=== PATIENT | female | born 1980 | race Caucasian/White ===

== ENCOUNTER 2022-10-26 09:55 | Inpatient (IN) | payer OTHER, SELFPAY ==
[2022-10-26] VITALS (19 sets, daily range): BP systolic 117–157; BP diastolic 59–82; PULSE 62–90; RESP 16–20; TEMP 36.1–37.3; O2SAT 95–100; BMI 36.2
[2022-10-26 10:56] LABS: Ur HCG Qualitative* Negative (Negative)
[2022-10-26] MEDS: LACTATED RINGERS 1000 ML 1,000 ML 100 ML IV ×2 (11:00→12:28)
[2022-10-26] MEDS: SODIUM CHLORIDE 0.9 % (FLUSH) 10 ML SYRINGE IVF (11:00)
[2022-10-26 11:04] LABS: Hemoglobin* 12.5 gm/dL (12.0-16.0)
[2022-10-26] MEDS: CEFAZOLIN 1 GM inj 3 GM IVP (12:10)
[2022-10-26] MEDS: VASOPRESSIN 20 UNIT/ML INJ INJECTION (12:47)
--- NOTE | 2022-10-26 14:24 | W.ANESCHARGE ---
Anesthesia Charges Start Date/Time Anesthesia Start Date: 10/26/22 Anesthesia Start Time: 11:58 Stop Date/Time Anesthesia Stop Date: 10/26/22 Anesthesia Stop Time: 15:04 Summary Emergency: No
--- NOTE | 2022-10-26 14:33 | W.PM.GYNPROC ---
Procedure Note Date Seen: 10/26/22 Procedure Details: PREOPERATIVE DIAGNOSIS: 1. Menorrhagia 2. Large fibroid uterus POSTOPERATIVE DIAGNOSIS: 1. Menorrhagia 2. Large fibroid uterus PROCEDURE: Laparotomy with myomectomies, total abdominal hysterectomy and bilateral salpingectomies. SURGEON: Marlys. OCCASIONAL CAREGIVER: Monika. ANESTHESIA: General endotracheal COMPLICATIONS: None ESTIMATED BLOOD LOSS: See operative report by Dr. Frankel. FINDINGS: Enlarged irregular myomatous uterus, weight greater than 800 grams, normal ovaries and fallopian tubes bilaterally. PROCEDURE NOTE: Please see the operative report by Dr. Frankel for full details of the procedure. I was asked to assist. I was scrubbed in for the entire procedure until closure of the abdominal incisions. I provided assistance with the laparotomy, visualization and retraction, and with the myomectomies, hysterectomy and bilateral salpingectomies from the right side, as well as with hemostasis and closure of the vaginal cuff.
--- NOTE | 2022-10-26 14:37 | W.PM.NB ---
Nerve Block Nerve Block Time Seen by Provider: 12:10 Date Seen: 10/26/22 Type of block requested by surgeon for post-operative analgesia: TAP Side: bilateral Time out performed: Yes Verification of patient name: Yes Verification of date of : Yes Site marking: site marked Name of person performing procedure: Jacob Continuous monitoring Was continuous monitoring of O2 sat, B/P, security monitor, recorded every 15 minutes?: Yes Procedure Checklist: sterile prep, needles and gloves Ultrasound guided. Images saved: Yes Medications given in 5ml increments after negative aspiration: Marcaine %: 0.25 mL: 30 Needle gauge: 20 and Exparel mL: 10 Patient tolerated procedure well: Yes Additional comments: Needle noted adjacent to nerve Block Charges Block Charge (with Pro Fee): TAP Bilateral Use of Ultrasound Machine for Block: Yes- US Guidance/pain block
--- NOTE | 2022-10-26 14:37 | W.ANESCHARGE ---
Anesthesia Charges Start Date/Time Anesthesia Start Date: 10/26/22 Anesthesia Start Time: 11:58 Stop Date/Time Anesthesia Stop Date: 10/26/22 Anesthesia Stop Time: 15:04 Summary Emergency: No
--- NOTE | 2022-10-26 14:59 | P.PCN_ITS ---
Procedure Note Time Seen by Provider: 15:00 Date Seen: 10/26/22 Date of procedure: 10/26/22 Will [facility] bill your pro fee for this procedure?: Yes Procedure: REFERRING PHSICIAN/PROVIDER: AARON Kilgore. PREOPERATIVE DIAGNOSIS: 42-year-old nulligravid woman with uterine fibroids and menorrhagia. POSTOPERATIVE DIAGNOSIS: Same. NAME OF PROCEDURE: Laparotomy, abdominal myomectomy x2, Total abdominal hysterectomy. Bilateral salpingectomies. SURGEON: Kaye Frankel MD VOCATIONAL REHABILITATION SPECIALIST: Karina Frank MD. SECOND ASSIST: NIKKI Charles. ANESTHESIA: General endotracheal. TAPS block. COMPLICATIONS: Myomectomy x2 prior to performing the hysterectomy to promote visualization: this took >60minutes of time above the time typically required for an abdominal hysterectomy. ESTIMATED BLOOD LOSS: 600 ml URINE OUTPUT: 400 mL clear urine at the end of the procedure IV FLUID: 1700 mL DRAINS: Juarez to gravity. SPECIMEN: 1. Uterus (with fibroids) and cervix. 2. Right fallopian tube. 3. Left fallopian tube. All sent to pathology. FINDINGS: Exam under anesthesia the uterus was palpable 2-3 cm below the umbilicus. The uterus was globular and immobile. Adnexa could not be evaluated on bimanual exam. On laparotomy: The pelvic anatomy was extremely distorted due to 1 or 2 large intramural, degenerated fibroids and 1 left- posterior fibroid that nearly filled the posterior cul-de-sac. The uterus plus fibroids was approximately 20 week size. The fallopian tubes and ovaries were normal. Both ureters were noted at the end of the procedure to be coursing in the sidewalls the pelvis well below the hysterectomy pedicles. PROCEDURE: After obtaining informed consent, the patient was taken to the operating room where general anesthesia was found to be adequate. A TAPS block was placed. She was prepared and draped in the normal sterile fashion in the dorsal supine position. A Juarez catheter was inserted sterilely into the bladder. A Pfannenstiel skin incision was made with a scalpel. This incision was carried down to the underlying layer of fascia with the Bovie. The fascia was incised in the midline and the incision extended laterally with Reis scissors.. The superior and inferior aspects of the fascial incision were grasped with Diane clamps and the underlying rectus muscles dissected off sharply. The rectus muscles were in the midline. The underlying peritoneum was identified, grasped with Angeles clamps and entered sharply with Metzenbaum scissors.. The peritoneal incision was extended superiorly and inferiorly with good visualization of the bladder. The patient was placed in some mild Trendelenburg positioning. Due to distortion of the normal pelvic anatomy it was difficult to identify any normal anatomy other than the round ligaments which were doubly clamped with Diane clamps divided with bipolar cautery and suture-ligated. Portion of the anterior broad ligament was then divided with bipolar cautery bilaterally. A bladder flap was created and the bladder mobilized away from the anterior aspect of the uterus. The bowels were packed cephalad using a large moistened laparotomy sponge. The Les O retractor was placed in the incision. The Les retractor had to be replaced because of the distorted uterine anatomy the 1st attempt I placed was noted to be incorrect. The pelvis was inspected with the findings noted above. Due to the extremely large size of the uterus and lobular nature of the fibroids a myomectomy x2 was performed prior to attempting the hysterectomy. Ten mL of dilute vasopressin: 200 units in 50 mL of saline was injected in the surface of the uterus at the fundus. Uterus was then incised with bipolar cautery with an incision approximately 8 cm in length. The capsule of the fibroid/fibroids was difficult to identify secondary to the fibroids being very soft due to suspected degeneration. The uterine serosa was difficult to identify because it was very thin. Areas where the uterine serosa was identified were clamped with Omayra clamps and divided with bipolar cautery to minimize bleeding. During the dissection of the degenerated fibroids, the fallopian tubes and ovaries were visualized and Falls clamps were placed at the cornual aspect of the uterus bilaterally. The degenerated fibroids were grasped with perforating towel clamps and the plane between the uterine serosa and fibroid capsule was form digitally. Once the serosa was mobilized away from the capsule of the fibroids to perform a partial myomectomy. The superior aspect of the fibroids was removed with bipolar cautery. At this point, the ovaries and fallopian tubes were visualized enough to be able to perform a bilateral salpingectomy. The right fallopian tube was identified, grasped with a Jerod clamp and removed using the LigaSure dissecting forceps. Pedicles were formed starting at the fimbriated end of the fallopian tube and the fallopian tube removed from the uterus at the cornual end. The left fallopian tube was identified and removed in a similar manner. Excellent hemostasis along the mesio-salpinx was verified using bipolar cautery. Attention was then turned to performing a 2nd myomectomy as the posterior, lower uterine segment fibroid that was in the cul-de-sac of the uterus was preventing visualization of the uterus to perform the hysterectomy. The uterine serosa ove rlying the fibroid was injected with the dilute vasopressin. 10 mL used. The overlying serosa was then incised with bipolar cautery down to the level of the fibroid capsule. The fibroid was grasped with a perforating towel clamp and the plane between uterine serosa and capsule was formed digitally. The fibroid was then removed from the underlying uterine serosa with blood pressure. The incisi on in the uterine serosa was then reapproximated using 0-Vicryl in a running locked manner. Attention was turned to performing the hysterectomy. The right, posterior leaf of the broad ligament was divided with bipolar cautery The posterior leaf of the broad ligament was incised inferior to the right utero-ovarian ligament and doubly clamped with a Omayra clamp and the right cornual Royce clamp. The ligament was divided with Reis scissors and the utero-ovarian pedicle doubly suture ligated with a free tie of 0 Vicryl suture and than a [id number]-yeh-[id number] stitch of 0-vicryl. The left utero-ovarian ligament was doubly clamped, divided and suture-ligated in a similar manner. Attention was then turned to the right side. The anterior leaf the broad ligament/peritoneum was carefully skeletonized using bipolar cautery and a DeBakey clamp. There was a moderately large blood vessel with in the anterior leaf the broad ligament that was identified, doubly clamped with 2 right angle clamps, divided with Reis scissors and suture ligated with 0-Vicryl free tie. The remaining peritoneum was then skeletonized off of the uterine blood vessels. The right uterine blood vessels were doubly Omayra clamped, divided with Reis scissors and Omayra transfixed. One additional pedicle using a straight Omayra clamp was formed on the right. The left uterine vessels were skeletonized and then clamped across with Omayra clamps, transected, and suture ligated. Excellent hemostasis was obtained. At this point the enlarged uterus was removed from the cervix using bipolar cautery. The cervix was then grasped with 2 Diane clamps. At this point the ureters were visualized coursing in the lateral banda of the pelvis bilaterally well below the suture/pedicle line. The remaining cardinal and uterosacral ligament attachments on both sides were clamped with straight Omayra clamps adjacent to the lower uterine segment and cervix, transected and suture ligated with 0 Vicryl. Excellent hemostasis was obtained. Two Omayra clamps were placed across the vaginal cuff angles. The uterus with attached cervix was then transected and passed off the field. The vaginal cuff angles were fixed with Omayra stitches of 0 Vicryl. The intervening vaginal cuff was closed with [id number] sutures of 0 Vicryl. The abdomen and pelvis were then copiously irrigated. Two pedicles appear to have some bleeding. One within the left vaginal cuff apex that was crossclamped with a right angle clamp and suture ligated with 0-Vicryl suture. The other pedicle was a hysterectomy pedicle on the right that was also crossclamped with a right angle clamp and suture ligated with 0 Vicryl suture. Remaining small bleeding vessels were isolated with DeBakey clamps and cauterized for hemostasis. Ralph was applied to the vaginal cuff, bladder flap serosa and hysterectomy pedicles. All laparotomy sponges and instruments were then removed. The subfascial tissues were carefully inspected and hemostasis assured. The fascia was re- approximated in a running fashion with a looped 0 Maxon suture. The subcutaneous tissues were irrigated and hemostasis obtained with bipolar cautery. The subcutaneous adipose layer was re-approximated with 3-0 plain gut interrupted sutures The skin was closed in a subcuticular fashion with 4-0 Monocryl. A silver dressing was applied. The patient tolerated the procedure well. Sponge, lap, needle, instrument counts were reported as correct x2. The patient was taken to recovery room awake and in stable condition. She received 3 g of IV Ancef preoperatively. Time spent operating 2 hours 45 minutes for the hysterectomy. Uterine weight in the operating room: 874 g Surgeon: Kaye Frankel MD
[2022-10-26] MEDS: HYDROmorphone 0.5 mg/0.5 ml inj IVP (16:03)
[2022-10-26] MEDS: OXYCODONE 5 MG TABLET PO ×2 (17:12→17:43)
[2022-10-26] MEDS: SIMETHICONE 80 MG TAB.CHEW 160 MG PO (18:04)
[2022-10-26] MEDS: LACTATED RINGERS 1000 ML 1,000 ML 125 ML IV (18:04)
[2022-10-26] MEDS: ONDANSETRON 2 MG/ML inj 4 MG IVP (18:19)
[2022-10-26] MEDS: KETOROLAC 30 MG/ML inj IVP (20:27)
[2022-10-27] VITALS (8 sets, daily range): BP systolic 102–132; BP diastolic 68–78; PULSE 77–92; RESP 16–20; TEMP 37–37.7; O2SAT 96–100
[2022-10-27] MEDS: LACTATED RINGERS 1000 ML 1,000 ML 125 ML IV (02:06)
[2022-10-27] MEDS: KETOROLAC 30 MG/ML inj IVP ×4 (02:10→20:26)
[2022-10-27] MEDS: OMEPRAZOLE 20 MG CAPSULE DR PO (04:22)
[2022-10-27 07:18] LABS: Basophils Absolute Auto 0.02 K/uL (0.00-0.30); Basophils Percent Auto 0.2 % (0.0-3.0); Eosinophils Absolute Auto 0.01 K/uL (0.00-0.50); Eosinophils Percent Auto 0.1 % (0.0-7.0); Hematocrit 33.4 % (33.0-51.0); Hemoglobin* 10.3 gm/dL (12.0-16.0); Immature Granulocytes Abs Auto 0.02 K/uL (0.00-0.30); Immature Granulocytes Pct Auto 0.2 %; Lymphocytes Percent Auto 15.5 % (20-44); Mean Corpuscular HGB Conc 31 gm/dL (32-36); Mean Corpuscular Hemoglobin 24 pg (26-34); Mean Corpuscular Volume 79 fL (80-100); Monocytes Percent Auto 13.1 % (0.0-11.0); Neutrophils Absolute Auto 7.55 K/uL (1.7-7.0); Neutrophils Percent Auto 70.9 % (42.0-72.0); Platelet Count* 240 K/uL (140-440); RDW Coefficient of Variation % 15.8 % (11.5-15.5); Red Blood Count 4.23 m/uL (4.00-5.20); White Blood Count* 10.64 K/uL (4.50-11.00)
[2022-10-27 07:21] LABS: Slide Review Reflex No
[2022-10-27] MEDS: ENOXAPARIN 40 MG/0.4 ML INJ SUBCUT (08:32)
--- NOTE | 2022-10-27 09:21 | P.GYNPN_ITS ---
SALES OFFICER - A/P Postoperative Procedures: Procedures Operation Date: 10/26/22 11:25 Actual Procedure Side Surgeon p Total Abdominal Hysterectomy, Abdominal myomectomy, bilateral Salpingectomy Kaye Frankel MD Postoperative day: 1 Postoperative status: doing well Postoperative plan: routine post-op care, see orders (Will remove marcum catheter now, continue to encourage ambulation, incentive spirometry, SCD if in bed. If continues to do well, possible discharge home tomorrow. ) and ambulate Time Spent With Patient Time: Total time spent is greater than 50% in coordination of care (as documented) at patient's floor/unit and/or counseling patient: Time with patient: less than 15 minutes SALES OFFICER- PN:Subj Post-Op Subjective Date Seen: 10/27/22 Interval history: Patient today states that pain is well managed, she ate some crackers last night but has not eaten breakfast yet. A bit nauseous last night and had one episode of vomit right after surgery. Marcum catheter is in place and has had normal urine output with clear urine. Vital signs normal, had one T of 100 (not fever) encouraged incentive spirometry and will continue to work today on ambulation. Has not passed flatus yet. Hemoglobin this morning 10.3 appropriate. Post Operative Details: Post-operative day number 1: status post total abdominal hysterectomy, bilateral salpingectomy Subjective: patient reports feeling better and pain is well controlled SALES OFFICER-PN: Obj Exam Physical Exam: Vital signs: Temp Pulse Resp BP Pulse Ox O2 Del Method 98.6 F 77 18 102/68 96 10/27/22 08:38 10/27/22 08:38 10/27/22 08:38 10/27/22 08:38 10/27/22 08:38 10/27/22 08:38 Narrative: VITAL SIGNS: As noted above. GENERAL APPEARANCE: Alert, cooperative female in no acute distress. MOOD & AFFECT: Normal. HEART: Regular rate and rhythm without murmurs. LUNGS: Lungs are clear to auscultation bilaterally. No crackles, wheezes, or rhonchi. ABDOMEN: Bowel sounds present. Soft, slight tenderness to palpation over lower abdominal quadrants. Incision covered by dressing this looks clean and dry. : Minimal spotting. EXTREMITIES: Compression stockings in place. Urinary Catheter Management: Urethral: Cath placed during this visit: no Reason for continuing: prolonged immobilization SALES OFFICER - PN: Obj Data Labs Labs: Laboratory Results - last 24 hr 10/26/22 10/26/22 10/26/22 10:45 10:51 10:51 WBC RBC Hgb 12.5 Hct MCV MCH MCHC RDW Coeff of Kylee Plt Count Neut % (Auto) Lymph % (Auto) [place] % (Auto) Eos % (Auto) Baso % (Auto) Neut # (Auto) Lymph # (Auto) [place] # (Auto) Eos # (Auto) Baso # (Auto) Urine HCG, Qual Negative Blood Type O Negative Antibody Screen NEGATIVE 10/27/22 07:01 WBC 10.64 RBC 4.23 Hgb 10.3 L Hct 33.4 MCV 79 L MCH 24 L MCHC 31 L RDW Coeff of Kylee 15.8 H Plt Count 240 Neut % (Auto) 70.9 Lymph % (Auto) 15.5 L [place] % (Auto) 13.1 H Eos % (Auto) 0.1 Baso % (Auto) 0.2 Neut # (Auto) 7.55 H Lymph # (Auto) 1.60 [place] # (Auto) 1.40 H Eos # (Auto) 0.01 Baso # (Auto) 0.02 Urine HCG, Qual Blood Type Antibody Screen
[2022-10-27] MEDS: SIMETHICONE 80 MG TAB.CHEW 160 MG PO (12:53)
[2022-10-27] MEDS: ACETAMINOPHEN 325 MG TABLET 1000 MG PO (18:50)
[2022-10-28 00:30] VITALS: BP 118/75; PULSE 87; RESP 16; RESP 18; TEMP 37.3; O2SAT 98
[2022-10-28] MEDS: IBUPROFEN 600 MG TABLET PO (00:49)
[2022-10-28] MEDS: ACETAMINOPHEN 325 MG TABLET 1000 MG PO ×2 (03:27→11:56)
[2022-10-28 03:33] VITALS: BP 119/70; PULSE 72; RESP 18; TEMP 36.7; O2SAT 97
[2022-10-28] MEDS: OMEPRAZOLE 20 MG CAPSULE DR PO (06:30)
[2022-10-28 07:22] VITALS: BP 124/79; PULSE 72; RESP 12; TEMP 36.7; O2SAT 98
[2022-10-28] MEDS: ENOXAPARIN 40 MG/0.4 ML INJ SUBCUT (09:04)
--- NOTE | 2022-10-28 10:14 | P.DS_ITS ---
DS: Providers Provider Date Seen: 10/28/22 Date of admission: 10/26/22 09:55 Primary care physician: Isela Ornelas PA-C Admitting Clinician: Kaye Frankel MD Attending Physician on discharge: Kaye Frankel MD DS: Diagnosis Discharge Diagnosis (1) Status post total abdominal hysterectomy: Status: Acute Problem details: Abdominal myomectomy x2, hysterectomy, B salpingectomy (2) GERD (gastroesophageal reflux disease): Status: Acute (3) Iron deficiency anemia: Status: Acute Problem details: Chronic menorrhagia (4) Obesity (BMI 35.0-39.9 without comorbidity): Status: Acute (5) Fibroid uterus: Status: Acute (6) Menorrhagia: Status: Acute PRELOAD SUPERVISOR-Discharge Summary Hospital Course Hospital Course Narrative: Irlanda is a 2-year-old nulligravid woman admitted on 10/26/2022 for scheduled total abdominal hysterectomy, bilateral salpingectomy to treat uterine fibroids, menorrhagia with secondary anemia. Indication for surgery: Uterine fibroids. Intraoperative findings were notable for large uterus approximately 18-20 week size completely filling the pelvis and palpable to nearly her umbilicus and exam under anesthesia. Normal ovaries and fallopian tubes.. She had an uncomplicated surgery. Postoperative course has been uneventful. Vitals have been stable. She has remained afebrile. Today, on postoperative day 2, she reports the pain is well controlled. She has been able to ambulate Without difficulty. She is tolerating regular diet. She is passing flatus. Juarez catheter has been removed, and she is voiding without difficulty. Hospital Course: Hospital Course: Irlanda was admitted to the hospital on 10/26/2022 for a scheduled NBA, bilateral salpingectomy to treat uterine fibroids and secondary anemia. Her surgery was uncomplicated. Her postoperative course was also uncomplicated. By postoperative day 1, she was tolerating a regular diet, ambulating without difficulty, passing flatus and pain was well controlled with oral pain medications. She would like to be discharged home today on postoperative day 2. Labs: Preoperative hemoglobin 12.5, postoperative hemoglobin 10.3. Objective: General: Alert and oriented x3. Pleasant, woman in no acute distress. Vital signs: See EMR. Heart: Regular rate and rhythm without gallop, rub or murmur. Chest: Clear to auscultation bilaterally. Abdomen: Soft, nontender, mildly distended with normal bowel sounds throughout. No CVA or flank tenderness. Incision(s): Silver-containing dressing in place and clean, dry and intact. Pelvic: Minimal vaginal bleeding, remainder of pelvic exam deferred. Extremities: No pain, edema, cyanosis or clubbing. Assessment: 42-year-old postoperative day postop day 2 from a abdominal myomectomy x2/NBA/bilateral salpingectomy doing well. Plan: 1. Discharge home today. 2. Activity restrictions reviewed with the patient. 3. Return to clinic to see Dr. Kaye Kumar on 11/03/2022 for dressing removal and incision check and then in approximately 5 weeks for postoperative exam. Time Spent with Patient Time attestation: Total time spent providing and/or coordinating discharge services: PRELOAD SUPERVISOR - Exam Physical Exam: Vital signs: Temp Pulse Resp BP Pulse Ox O2 Del Method 98.1 F 72 12 124/79 98 10/28/22 07:22 10/28/22 07:22 10/28/22 07:22 10/28/22 07:22 10/28/22 07:22 10/28/22 07:22 PRELOAD SUPERVISOR - DS: Data Procedures Procedures: Procedures Operation Date: 10/26/22 11:25 Actual Procedure Side Surgeon p Total Abdominal Hysterectomy, Abdominal myomectomy, bilateral Salpingectomy Kaye Frankel MD Discharge Plan Discharge Disposition: Home, Self-Care Date of Admission: 10/26/22 09:55 Attending Provider on Discharge: Kaye Frankel Primary Care Provider: Isela Ornelas Condition: Stable Anticipated Discharge Date/Time: 10/28/22 12:30 Discharge Medications: New docusate sodium 100 mg Capsule 100 mg PO BID PRN (Reason: Constipation) Qty: 100 0RF ibuprofen 600 mg Tablet 600 mg PO Q6H Qty: 30 0RF oxycodone 5 mg Tablet 5 mg PO 3XD PRN (Reason: Moderate Pain) Qty: 20 0RF Continued ferrous sulfate [Feosol] 325 mg (65 mg iron) tablet 325 mg PO QDAY Discontinued omeprazole 20 mg capsule,delayed release(DR/EC) 20 mg PO ONCE Label Comments: TAKE 1 CAPSULE BY MOUTH EVERY DAY BEFORE A MEAL tranexamic acid 650 mg tablet 1,300 mg PO TID Qty: 15 2RF norethindrone acetate 5 mg tablet 5 mg PO TID PRN (Reason: vaginal bleeding) Qty: 180 2RF Discharge Orders: Discharge Order (Routine); Ordered 10/28/22 Ordered By: Kaye Frankel Consulting provider completed their portion of the discharge: No Patient Education: Hysterectomy (DC) Additional Instructions: Discharge instructions were reviewed with the patient including signs and symptoms of infection and home going medications ACTIVITY RESTRICTIONS: Lifting Restrictions: 20 pounds for 6 weeks No not submerge incision under water: 2 weeks? Nothing vaginally for 6 weeks: no tampons or intercourse. Do not drive while taking narcotic pain medication(s): 1-2 weeks No high impact, high intensity or core exercises: 6 weeks Off Work or School for 6 weeks Walking and walking up/down stairs: no restriction. Showering: no restriction. Symptoms to report to doctor: * Pain not relieved by prescribed medication * Fever above 100.4 degrees Fahrenheit * A foul vaginal odor * Any drainage, redness, or tenderness in your IV or incsion site. * Decrease in urination or painful, frequent urinating * Chest pain * Shortness of breath * Tenderness or pain with redness and/swelling in the calf(s) of your leg FOLLOW-UP APPOINTMENTS: 1. Dressing removal and incision check next Tuesday11/03/2022 2. Postop check in approximately 5 weeks. Discharge Diet: Regular Follow Up Appointments: Kaye Frankel MD [Staff Physician] - Isela Ornelas PA-C [Primary Care Provider] - Forms: [employer] Info Instructions
== END 2022-10-28 12:03 | disposition home or self-care (01) | DRG 743 ==
PROVIDERS: Admitting Provider Obstetrics & Gynecology; PCP Physician Assistant Medical; Visit Provider Obstetrics & Gynecology
PROC: 0UT94ZZ Resection of Uterus, Percutaneous Endoscopic Approach (ICD-10-PCS; CPT 52000; principal; 2022-10-26 11:15)
DX: N92.0 Excessive and frequent menstruation with regular cycle (principal); D25.1 Intramural leiomyoma of uterus; N85.2 Hypertrophy of uterus; D50.9 Iron deficiency anemia, unspecified; E66.9 Obesity, unspecified; Z68.36 Body mass index [BMI] 36.0-36.9, adult; K21.9 Gastro-esophageal reflux disease without esophagitis
CPT/HCPCS: 00840; 00944; 36415; 64488; 76942; 81025; 84703; 85018; 85025; 86850; 86900; 86901; 88307; 88342; A9270; C9290; J0690; J1100; J1170; J1650; J1885; J2250; J2405; J3010; J3490; J7120